=== PATIENT | male | born 1945 | race Caucasian/White ===

== ENCOUNTER 2024-10-11 20:05 | Emergency (ER) | payer MEDICARE, SELFPAY ==
[2024-10-11 20:07] VITALS: BP 144/74
--- NOTE | 2024-10-11 22:44 | ED.GENMED ---
History of Present Illness
General
Chief Complaint: Back Pain
Source: patient and spouse
Exam Limitations: none
Time Seen by Provider: 10/11/24 22:27
Nursing documentation reviewed up to this point in time: agreed with
History of Present Illness
History of Present Illness:
78-year-old male presents emergency department complaining of low back pain for the past 2 days. It hurts when he bends over. The pain does not radiate to his abdomen or legs.
Past History
Past History
ED Past Medical History: Valvular disease and Other (Heart murmur)
ED Past Surgical History: Cardiac (Septal defect repair 2008), Cholecystectomy, Orthopedic (Left knee meniscus repair) and Other (Cataract surgery 2006)
Social History
Tobacco: Former smoker
Alcohol: Occasional
Drug: None
Personal:
Living: with family
Review of Systems
Review of Systems
Allergies reviewed?: Yes
All Other Systems: Not applicable
Constitutional: Reports no symptoms
EENT: Reports no symptoms
Respiratory: Reports no symptoms
Cardiac: Reports no symptoms
ABD/GI: Reports no symptoms
: Reports no symptoms
Musculoskeletal: Reports back pain
Skin: Reports no symptoms
Neurological: Reports no symptoms
Endocrine: Reports no symptoms
Hematologic/Lymphatic: Reports no symptoms
Psychiatric: Reports no symptoms
Phy Exam
Physical Exam
Physical Exam:
Physical Exam
General: no apparent distress, not acutely ill
Neck: supple. no meningeal signs. normal posterior pharynx
HEENT: Pupils equal round reactive to light, EOMI
Lungs: no acute respiratory distress.
Abdomen: normal bowel sounds. not tender. no CVAT
Neuro: alert and oriented. no focal neurological deficits cranial nerves II through XII intact
Skin: no rash
Psychiatric: well kept. interactive and cooperative
Extremities: no edema. no calf tenderness. negative homans. good distal pulses
Course
Orders/Labs/Results
Orders:
Orders
10/11/24 22:43
Lumbar Spine Complete, 4 View [CR Lumbar Spine Comp Min 4 Vw*] Urgent
Comment:
Reason For Exam: low back pain for 2 days
Vital Signs
Initial and Last Documented VS:
Initial Vital Signs
Temp Pulse Resp BP Pulse Ox
98.4 F 71 18 144/74 97
10/11/24 20:07 10/11/24 20:07 10/11/24 20:07 10/11/24 20:07 10/11/24 20:07
Last Documented Vital Signs
Temp Pulse Resp BP Pulse Ox
98.4 F 71 18 144/74 97
10/11/24 20:07 10/11/24 20:07 10/11/24 20:07 10/11/24 20:07 10/11/24 20:07
MDM/Problems Addressed
Differential Diagnosis Includes:
Aortic dissection, aortic aneurysm, cauda equina
MDM/Problems Addressed:
78-year-old male with low back pain, abdomen exam benign. Do not suspect aortic dissection or aneurysm. No signs of cauda equina. X-ray shows degenerative changes, no fracture. Patient ambulates healthy. Will prescribe muscle relaxants,
follow-up with orthopedics.
*Radiology
Radiology exam reviewed: preliminary read by ED provider (Lumbar spine x-ray degenerative changes)
*Pulse Oximetry
Patient hypoxic: no
*EKG
Interpreted by ED Provider?: NA
*Critical Care Note
Total Time (30-74mins, 75-104mins- exclusive of procedures): Not Applicable
Data Reviewed
Further Testing Considered But Not Given:
CT scan not indicated, MRI not indicated
Patient Management
Social determinants of health affecting care: Living situation and Strong social support
Escalation/DeEscalation of care consider admission/obs:
Admission not indicated
ED Attending Note
-
Portions of this chart may have been created with voice recognition software.� Occasional wrong word or��sound alike� substitutions may have occurred due to the inherent limitations of voice recognition software.
Discharge Plan
Departure
Patient Disposition: Home (Routine Discharge)
Date of Disposition: 10/11/24
Time of Disposition: 23:18
Patient with high blood pressure during this ER visit?: Yes
Condition: Good
Discharge Problem:
Lumbosacral strain
Instructions: Low Back Pain (DC), BLOOD PRESSURE
Referrals:
Raji Marmolejo, DO [Non-Admitting Privileges] - Call in 1-3 days for appt
Interventions
Interventions:
*Risk Screen - Suicide Last Done: 10/11/24 20:07
*General Assessment Last Done: 10/11/24 20:07
*Neglect/Abuse Screening Last Done: 10/11/24 20:07
ED- Fall Risk Assessment Last Done: 10/11/24 23:50
*ED COVID-19 Vaccine History Last Done: 10/11/24 20:07
*Nursing Disposition Last Done: 10/11/24 23:50
ED-Musculoskeletal Assessment Last Done: 10/11/24 23:50
Discharge Date and Time
Discharge Date/Time: 10/11/24 23:50
Print Language: BAHAMIAN
== END 2024-10-11 23:50 | disposition home or self-care (01) ==
LOC: EMR 20:05
PROVIDERS: EMERGENCY PHYSICIAN Emergency Medicine; FAMILY PHYSICIAN Internal Medicine
DX: S39.012A Strain of muscle, fascia and tendon of lower back, initial encounter (principal); X58.XXXA Exposure to other specified factors, initial encounter; R03.0 Elevated blood-pressure reading, without diagnosis of hypertension; R01.1 Cardiac murmur, unspecified; I38 Endocarditis, valve unspecified; Z90.49 Acquired absence of other specified parts of digestive tract; Z87.891 Personal history of nicotine dependence
CPT/HCPCS: 99283; 72110

== ENCOUNTER 2025-09-12 09:09 | Emergency (ER) | payer MEDICARE, SELFPAY ==
[2025-09-12 09:10] VITALS: BP 119/75
--- NOTE | 2025-09-12 11:03 | ED.GENMED ---
History of Present Illness
General
Chief Complaint: Musculo-Skeletal Complaint
Time Seen by Provider: 09/12/25 10:02
History of Present Illness
History of Present Illness:
see MDM
Past History
Past History
ED Past Medical History: Valvular disease and Other (Heart murmur)
ED Past Surgical History: Cardiac (Septal defect repair 2008), Cholecystectomy, Orthopedic (Left knee meniscus repair) and Other (Cataract surgery 2006)
Social History
Tobacco: Former smoker
Alcohol: Occasional
Drug: None
Personal:
Living: with family
Phy Exam
Physical Exam
Physical Exam:
see MDM
Course
Orders/Labs/Results
Orders:
Orders
09/12/25 10:17
Venous Doppler Lwr Ext Left [US Periph Venous LOWER Ext LT] Urgent
Comment:
Reason For Exam: l thigh cord, concern for dvt vs thrombophlebitis
09/12/25 11:55
Apixaban [Eliquis] 10 mg PO NOW STA
Vital Signs
Initial and Last Documented VS:
Initial Vital Signs
Temp Pulse Resp BP Pulse Ox
36.6 C 81 18 119/75 97
09/12/25 09:10 09/12/25 09:10 09/12/25 09:10 09/12/25 09:10 09/12/25 09:10
Last Documented Vital Signs
Temp Pulse Resp BP Pulse Ox
36.6 C 81 18 119/75 97
09/12/25 09:10 09/12/25 09:10 09/12/25 09:10 09/12/25 09:10 09/12/25 11:05
MDM/Problems Addressed
Differential Diagnosis Includes:
see MDM
MDM/Problems Addressed:
Note:
CHIEF COMPLAINT(S)
Varicose veins with new tenderness and a sensation of pressure in the lower leg.
HISTORY OF PRESENT ILLNESS
The patient 79 y/o M very healthy presents with a history of varicose veins, which became notably symptomatic last year while in [place]. During that period, the patient experienced significant pain and swelling in the lower leg. An ultrasound was
performed by a vascular specialist in [place], which revealed extensive clogging in the superficial veins but not in the major veins. As a result, the patient was prescribed Apixaban (Eliquis) twice daily for about 90 days. The treatment was
successful, with notable improvement in the condition of the lower leg, characterized as being 'better than Zabrina ever seen it.' Recently, starting approximately five days ago, the patient has experienced new tenderness inthe thigh proximal to the
knee for a small segment. although no redness or heat has been observed. The patient describes this sensation as persistent, ally to feeling pressure. There have been no associated chest pain or shortness of breath. Previously tried cold compresses
were preferred over warm ones; however, warm compresses are advised for superficial thrombophlebitis. The patient reports the sensation was previously not painful and discusses a typical care plan involving anticoagulation to prevent further
complications.
PAST MEDICAL AND SURGICAL HISTORY
- History of intra-articular corticosteroid injections in the left knee due to arthritis and [id number] changes.
- History of epidural injections in the lower back for degenerative disc disease, stenosis, and arthritis.
SOCIAL DETERMINANTS AFFECTING HEALTH
The patient mentioned traveling extensively with planned long drives to [place], taking breaks every two to two and a half hours to alleviate any associated discomfort due to their �s back issues.
PHYSICAL EXAM
- Nursing notes reviewed and vital signs reviewed.
GENERAL: Alert , in no apparent distress
EYE: pupils equal and reactive
NECK: Supple
ENT: o/p clr, mmm.
CARDIAC: Regular rate and rhythm .normal pulse
LUNGS: Clear breath sounds bilaterally, no acute respiratory distress, no wheezes/rales/rhonchi
ABDOMEN: Soft, without focal tenderness, no r/g, no cvat, normal bowel sounds
NEUROLOGICAL: Alert and oriented, no focal neuro deficits
SKIN: Warm and dry, skin intact. multiple varicosities LLE, nontender
MUSCULOSKELETAL: palpable cord L distal thigh region, no overlying warmth or erythema;
otherwise leg itself normal, full painless ROM of hip, knee, ankle
PSYCH: Normal and appropriate interaction.
PLAN
The attending provider plans to perform an ultrasound to assess for possible superficial vein thrombosis or deep vein involvement, given the new tenderness and sensation of pressure.
DIFFERENTIAL DIAGNOSIS
The Differential Diagnosis includes, in no particular order and is not limited to:
1. Superficial thrombophlebitis
2. Deep vein thrombosis
3. Chronic venous insufficiency
4. Post-thrombotic syndrome
5. Lymphedema
6. Peripheral vascular disease
7. Bakers cyst
8. Cellulitis
9. Lipodermatosclerosis
10. Venous ulcer formation
CARE-UPDATE
09/12/25 - 11:54
The patient has been diagnosed with a deep vein thrombus in the peroneal vein, requiring anticoagulant therapy. The current plan is to continue treatment with Eliquis (Apixaban), starting with a double dose of 10 mg twice daily for a week, then
reducing to 5 mg twice daily. The patient possesses a starter pack and is considering cost alternatives. Despite the expense, the patient has opted to proceed with Eliquis. The clinic may offer assistance in obtaining a coupon or a free starter pack
to reduce costs. Treatment duration is expected to be three to six months and possibly lifelong due to a history of clotting. The patient has been advised to contact their healthcare provider in [place] to arrange ongoing management and follow-up,
as they are an established patient there. A copy of the ultrasound report will be provided for continuity of care.
*Pulse Oximetry
SaO2: 97
Oxygen Mode of Delivery: Room air
Patient hypoxic: no (97)
*Critical Care Note
Total Time (30-74mins, 75-104mins- exclusive of procedures): Not Applicable
ED Attending Note
-
Portions of this chart may have been created with voice recognition software.� Occasional wrong word or��sound alike� substitutions may have occurred due to the inherent limitations of voice recognition software.
Discharge Plan
Departure
Patient Disposition: Home (Routine Discharge)
Date of Disposition: 09/12/25
Time of Disposition: 12:09
Patient with high blood pressure during this ER visit?: No
Condition: Fair
Covid-19: Not Applicable
Discharge Problem:
DVT (deep venous thrombosis)
Instructions: Deep vein thrombosis (DVT) - ED (DC)
Prescriptions:
New
Eliquis 5 mg tablet
10 mg PO BID 7 Days Qty: 28 0RF
Eliquis 5 mg tablet
5 mg PO BID Qty: 60 0RF
Referrals:
Rey Resendiz MD [Family Provider, Internal Medicine]
Activity Restrictions/Additional Instructions:
You have a blood clot in your left peroneal vein. You also have a superficial clot in your left greater saphenous.
YOU SHOULD TAKE ELIQUIS 10 MG TWICE A DAY FOR 7 DAYS THEN 5 MG TWICE A DAY
YOU WILL NEED TO TAKE THIS FOR AT LEAST 3-6 MONTHS
NOTIFY YOUR VASCULAR CENTER
RETURN FOR: COLOR CHANGE TO LEG, CHEST PAIN, SHORTNESS OF BREATH, PASSING OUT OR ANYC OCNERNS.
Interventions
Interventions:
*Risk Screen - Suicide Last Done: 09/12/25 09:14
*General Assessment Last Done: 09/12/25 12:30
*Neglect/Abuse Screening Last Done: 09/12/25 09:14
*ED COVID-19 Vaccine History Last Done: 09/12/25 12:30
*ED Influenza Vaccine History Last Done: 09/12/25 12:30
[facility] Fall Risk Assessment Tool Last Done: 09/12/25 12:30
*Nursing Disposition Last Done: 09/12/25 12:30
ED-Musculoskeletal Assessment Last Done: 09/12/25 12:28
Discharge Date and Time
Discharge Date/Time: 09/12/25 12:31
Print Language: CHINESE
[2025-09-12] MEDS: ELIQUIS 10 MG PO (12:13)
== END 2025-09-12 12:31 | disposition home or self-care (01) ==
LOC: EMR 09:09
PROVIDERS: EMERGENCY PHYSICIAN Student in an Organized Health Care Education/Training Program; FAMILY PHYSICIAN Internal Medicine
DX: I82.452 Acute embolism and thrombosis of left peroneal vein (principal); Z87.891 Personal history of nicotine dependence
CPT/HCPCS: 99284; 93971

== ENCOUNTER 2025-10-08 08:17 | Emergency (ER) | payer MEDICARE, SELFPAY ==
[2025-10-08 08:22] VITALS: BP 132/69
--- NOTE | 2025-10-08 08:59 | ED.GENMED ---
History of Present Illness
General
Chief Complaint: DVT/Possible Blood Clot
Source: patient
Time Seen by Provider: 10/08/25 08:28
History of Present Illness
History of Present Illness:
79-year-old male with past medical history of a recently diagnosed DVT to the left lower extremity presenting back to the emergency department at the request of his vascular specialist in [facility] for pain to the right proximal thigh that
started this morning around 7 AM without any injury, patient stating that his specialist wanted to ensure he did not have DVT to the right lower extremity. Patient states that he has been taking his Eliquis as prescribed. He notes that a little
over 1 year ago he was diagnosed with phlebitis to the left lower extremity and had been started on Eliquis for 90 days, completed this and had full resolution of symptoms. Patient has a secondary concern of cold-like symptoms that started last
night including sinus pressure, sore throat and a mild cough. Patient did a home COVID test which was negative. Patient denies any focal weakness or numbness to his extremities.
Past History
Past History
ED Past Medical History: Valvular disease and Other (Heart murmur)
ED Past Surgical History: Cardiac (Septal defect repair 2008), Cholecystectomy, Orthopedic (Left knee meniscus repair) and Other (Cataract surgery 2006)
Social History
Tobacco: Former smoker
Alcohol: Occasional
Drug: None
Personal:
Living: with family
Review of Systems
Review of Systems
All Other Systems: ROS reviewed and negative except as documented in HPI and ROS
Phy Exam
Physical Exam
Physical Exam:
GENERAL: Alert , in no apparent distress
HEAD: Normocephalic atraumatic
EYE: conjunctiva clear
NECK: Supple
ENT: o/p clr, mmm.
CARDIAC: Regular rate and rhythm
LUNGS: Clear breath sounds bilaterally, no acute respiratory distress, no wheezes/rales/rhonchi
NEUROLOGICAL: Alert and oriented
SKIN: Warm and dry, skin intact.
MUSCULOSKELETAL: well perfused.
PSYCH: Normal and appropriate interaction.
Scores
Heart Failure Risk
Heart Failure Risk Score: Not Applicable
Heart Score for Chest Pain Patients
STEMI patient?: Not applicable
Withdrawal Assessment of Alcohol
Withdrawal Assessment Completed?: Not applicable
Course
Orders/Labs/Results
Orders:
Orders
10/08/25 08:30
US Legs, Right [US Periph Venous LOWER Ext RT] Urgent
Comment:
Reason For Exam: pain, hx recent DVT to LLE
10/08/25 09:14
Influenza A+B Rapid Molecular Urgent
ANU Source: Nasal Swab
Specimen Description:
10/08/25 09:15
COVID-19 Antigen Urgent
Source: Nasal Swab
Vital Signs
Initial and Last Documented VS:
Initial Vital Signs
Temp Pulse Resp BP Pulse Ox
98.9 F 115 20 132/69 98
10/08/25 08:22 10/08/25 08:22 10/08/25 08:22 10/08/25 08:22 10/08/25 08:22
Last Documented Vital Signs
Temp Pulse Resp BP Pulse Ox
98.5 F 82 22 115/79 99
10/08/25 09:00 10/08/25 11:35 10/08/25 11:35 10/08/25 11:35 10/08/25 11:35
MDM/Problems Addressed
Differential Diagnosis Includes:
DVT
Phlebitis
PVD
PAD
COVID
Flu
Pneumonia
PE
Other Viral etiology
MDM/Problems Addressed:
79-year-old male presenting to the ER with 2 separate concerns. First concern is possible DVT to the right lower extremity, patient's vascular specialist in [place] wanted him to have an ultrasound of his right lower extremity to rule out DVT.
Exam reassuring, no obvious edema, no overlying cellulitic changes, no obvious phlebitis. Ultrasound ordered. Secondary concern of URI-like symptoms that started yesterday. COVID and flu testing ordered. Patient afebrile.
Chronic conditions affecting care: PVD
*Radiology
Radiology exam reviewed: radiology read reviewed
*Pulse Oximetry
SaO2: 97
Oxygen Mode of Delivery: Room air
Patient hypoxic: no
*Critical Care Note
Total Time (30-74mins, 75-104mins- exclusive of procedures): Not Applicable
Data Reviewed
Review of Other/Old Records Reveals: Labs, Records and Radiology Studies
Patient Management
Escalation/DeEscalation of care consider admission/obs:
Ultrasound is negative for DVT. COVID and flu testing negative. Suspect viral URI. Possible muscle strain. Encouraged outpatient follow-up with primary care provider. Aware of return precautions.
ED Attending Note
-
Portions of this chart may have been created with voice recognition software.� Occasional wrong word or��sound alike� substitutions may have occurred due to the inherent limitations of voice recognition software.
Discharge Plan
Departure
Patient Disposition: Home (Routine Discharge)
Date of Disposition: 10/08/25
Time of Disposition: 10:42
Patient with high blood pressure during this ER visit?: No
Discharge Problem:
Pain in right thigh, URI (upper respiratory infection)
Instructions: Cough, runny nose, and colds
Prescriptions:
No Action
Eliquis 5 mg tablet
10 mg PO BID
Referrals:
Rey Resendiz MD [Family Provider, Internal Medicine]
Interventions
Interventions:
*General Assessment Last Done: 10/08/25 09:00
*Neglect/Abuse Screening Last Done: 10/08/25 09:00
*ED COVID-19 Vaccine History Last Done: 10/08/25 09:00
*ED Influenza Vaccine History Last Done: 10/08/25 09:00
[facility] Risk Assessment Tool Last Done: 10/08/25 09:00
*Risk Screen - Suicide (C-SSRS) Last Done: 10/08/25 08:22
*Nursing Disposition Last Done: 10/08/25 11:36
ED- Cardiac Assessment Last Done: 10/08/25 09:00
ED- Pulmonary Assessment Last Done: 10/08/25 09:00
ED-Peripheral Vascular Assessment Last Done: 10/08/25 09:00
ED-Skin Assessment Last Done: 10/08/25 09:00
Discharge Date and Time
Discharge Date/Time: 10/08/25 12:08
Print Language: VIETNAMESE
[2025-10-08 09:00] VITALS: BP 111/64; BP 126/81; BMI 25.9
[2025-10-08 09:43] LABS: COVID-19 Antigen Negative (Negative)
[2025-10-08 10:52] VITALS: BP 107/63
[2025-10-08 11:00] VITALS: BP 115/79
[2025-10-08 11:35] VITALS: BP 115/79
== END 2025-10-08 12:08 | disposition home or self-care (01) ==
LOC: EMR 08:17
PROVIDERS: Physician Assistant Medical; EMERGENCY PHYSICIAN Emergency Medicine; FAMILY PHYSICIAN Internal Medicine
DX: M79.651 Pain in right thigh (principal); J06.9 Acute upper respiratory infection, unspecified; Z11.52 Encounter for screening for COVID-19; R60.0 Localized edema; R01.1 Cardiac murmur, unspecified; I38 Endocarditis, valve unspecified; Z79.01 Long term (current) use of anticoagulants; I73.9 Peripheral vascular disease, unspecified; Z86.718 Personal history of other venous thrombosis and embolism; Z87.891 Personal history of nicotine dependence; Z90.49 Acquired absence of other specified parts of digestive tract
CPT/HCPCS: 99284; 87502; 87811; 93971